=== PATIENT | male | born 1945 | race Caucasian/White ===

== ENCOUNTER → 2019-09-04 | Outpatient (CLI) | payer OTHER ==
[~2019-09-04] MED LIST: CEPHALEXIN500 M1 PO; ZOFRAN4 MG PO
== END | disposition home or self-care (01) ==
LOC: US 13:00
DX: E04.1 Nontoxic single thyroid nodule (principal)

== ENCOUNTER 2019-09-27 17:39 | Emergency (ER) | payer MEDICARE, OTHER ==
[~2019-09-27] VITALS: Ht 165.1 cm; Wt 81.6 kg
[2019-09-27 18:59] LABS: BILIRUBIN NEGATIVE (NEGATIVE); BLOOD 1+ (NEGATIVE); CLARITY CLEAR (CLEAR); COLOR YELLOW (YELLOW); GLUCOSE NEGATIVE (NEGATIVE); KETONE NEGATIVE (NEGATIVE); LEUKO ESTERASE NEGATIVE (NEGATIVE); NITRITE NEGATIVE (NEGATIVE); SPECIFIC GRAVITY 1.025 (1.005-1.030); UROBILINOGEN 0.2 E.U./dl (0.2-1.0)
[2019-09-27 19:00] LABS: BASO % 0.2 % (0.0-1.0); EOS # 0.1 10*3/uL (0.0-0.4); EOS % 3.3 % (1.0-4.0); HEMATOCRIT 35.4 % (42.0-52.0); HEMOGLOBIN 11.7 g/dl (14.0-18.0); LYMPH # 0.2 10*3/uL (1.3-4.4); LYMPH % 5.6 % (27.0-41.0); MEAN CELL VOLUME 90.8 fl (80.0-94.0); MEAN CORPUSCULAR HGB CONC 33.1 g/dl (33.0-37.0); MEAN PLATELET VOLUME 9.8 fl (9.6-12.3); MONO # 0.6 10*3/uL (0.1-1.0); MONO % 14.1 % (3.0-9.0); NEUT # 3.3 10*3/uL (2.3-7.9); NEUT % 76.6 % (47.0-73.0); PLATELET COUNT AUTOMATED 133 10*3/uL (130-400); RED CELL DISTRI WIDTH 15.4 % (0-14.5); WHITE BLOOD COUNT 4.3 10*3/uL (4.8-10.8)
[2019-09-27 19:05] LABS: WBC 0-2 wbc/hpf (0-5)
[2019-09-27 19:14] LABS: ALBUMIN 3.8 gm/dl (3.1-4.5); ALKALINE PHOSPHATASE 77 U/L (45-117); BUN 21 mg/dl (7-24); CHLORIDE 104 mmol/L (98-107); CREATININE 1.32 mg/dL (0.70-1.30); POTASSIUM 4.4 mmol/L (3.5-5.1); SGOT/AST 22 IU/L (3-35); SGPT/ALT 29 U/L (12-78); SODIUM 134 mmol/L (136-145); TOTAL PROTEIN 7.8 gm/dL (6.4-8.2)
[2019-09-28] MEDS ORDERED: CEPHALEXIN500 M1 PO (20:45)
[2019-09-28] MEDS ORDERED: ZOFRAN4 MG PO (20:45)
== END 2019-09-27 21:51 ==
LOC: ED 17:39
PROVIDERS: Emergency Medicine
DX: R19.7 Diarrhea, unspecified (principal); R50.9 Fever, unspecified; R51 Headache; R35.0 Frequency of micturition; R30.9 Painful micturition, unspecified; R30.0 Dysuria; C61 Malignant neoplasm of prostate; Z88.8 Allergy status to other drugs, medicaments and biological substances; Z90.49 Acquired absence of other specified parts of digestive tract

== ENCOUNTER 2019-09-28 18:27 | Emergency (ER) | payer MEDICARE, OTHER ==
[~2019-09-28] VITALS: Ht 165.1 cm; Wt 81.6 kg
--- NOTE | ~2019-09-28 | EKG ---
[place], [place] ELECTROCARDIOGRAM REPORT NAME: DONNY VERDIN UNIT #: [id number] ROOM: DOCTOR: EPIPHANY DRAFT REPORT BIRTHDATE: [birth year] [facility] Test Date: 2019-09-28 Test Time: 18:52:55 Pat Name: DONNY VERDIN Department: Room: Gender: Physical Science Aide: Musa Baird : 1945 Requested By: VALORIE LESTER DNP Order Number: [id number] Reading MD: Jeet Piper MD Measurements Intervals [place] Rate: 98 P: 49 [place]: 171 QRS: -10 QRSD: 91 T: 33 QT: 346 QTc: 442 Interpretive Statements Sinus rhythm Baseline wander in lead(s) II,III,aVR,aVF Electronically Signed On 09-29-2019 10:12:56 PST by Jeet Piper MD CM:EKGRPT:ELECTROCARDIOGRAM REPORT [id number] VALORIE LESTER DNP EPIPHANY DRAFT REPORT VALORIE LESTER DNP
[2019-09-28 19:05] LABS: BASO % 0.2 % (0.0-1.0); EOS # 0.1 10*3/uL (0.0-0.4); EOS % 2.8 % (1.0-4.0); HEMATOCRIT 32.9 % (42.0-52.0); HEMOGLOBIN 10.7 g/dl (14.0-18.0); LYMPH # 0.2 10*3/uL (1.3-4.4); LYMPH % 5.3 % (27.0-41.0); MEAN CELL VOLUME 90.9 fl (80.0-94.0); MEAN CORPUSCULAR HGB 29.6 pg (27.0-31.0); MEAN CORPUSCULAR HGB CONC 32.5 g/dl (33.0-37.0); MONO # 0.6 10*3/uL (0.1-1.0); MONO % 13.1 % (3.0-9.0); NEUT # 3.4 10*3/uL (2.3-7.9); NEUT % 77.9 % (47.0-73.0); PLATELET COUNT AUTOMATED 130 10*3/uL (130-400); RED BLOOD COUNT 3.62 10*6/uL (4.50-5.90); RED CELL DISTRI WIDTH 15.7 % (0-14.5); WHITE BLOOD COUNT 4.4 10*3/uL (4.8-10.8)
[2019-09-28 19:16] LABS: ACT PARTIAL THROMBO TIME 29.1 SECONDS (20.0-32.1); INTERNATIONAL NORM RATIO 1.1 (2.0-3.5)
[2019-09-28 19:20] LABS: ALBUMIN 3.4 gm/dl (3.1-4.5); CREATININE 1.43 mg/dL (0.70-1.30); POTASSIUM 4.2 mmol/L (3.5-5.1); TOTAL PROTEIN 7.6 gm/dL (6.4-8.2); TROPONIN I 0.017 ng/ml (<0.045)
[2019-09-28 20:34] LABS: BILIRUBIN NEGATIVE (NEGATIVE); BLOOD 3+ (NEGATIVE); CLARITY CLEAR (CLEAR); COLOR YELLOW (YELLOW); GLUCOSE NEGATIVE (NEGATIVE); KETONE NEGATIVE (NEGATIVE); LEUKO ESTERASE NEGATIVE (NEGATIVE); NITRITE NEGATIVE (NEGATIVE); SPECIFIC GRAVITY 1.025 (1.005-1.030); UROBILINOGEN 0.2 E.U./dl (0.2-1.0)
[2019-09-28 20:40] LABS: EPITHELIAL CELLS 0-2; RBC 16-20 rbc/hpf (0-2); WBC 0-2 wbc/hpf (0-5)
[2019-09-28 20:41] LABS: BACTERIA 1+; MUCOUS TRACE
[2019-09-28] MEDS ORDERED: ZOFRAN4 MG PO (20:45)
[2019-09-28] MEDS ORDERED: CEPHALEXIN500 M1 PO (20:45)
== END 2019-09-28 21:00 | disposition home or self-care (01) ==
LOC: ED 18:27
PROVIDERS: Nurse Practitioner Family
DX: R11.10 Vomiting, unspecified (principal); R42 Dizziness and giddiness; R50.9 Fever, unspecified; R82.71 Bacteriuria; C61 Malignant neoplasm of prostate; R79.1 Abnormal coagulation profile

== ENCOUNTER → 2023-03-14 | Outpatient (CLI) | payer OTHER | END | disposition home or self-care (01) | LOC: US 01:37 | PROVIDERS: ATTEND Nurse Practitioner Family | DX: R94.5 Abnormal results of liver function studies (principal); Z90.49 Acquired absence of other specified parts of digestive tract ==

== ENCOUNTER → 2023-03-26 | Outpatient (CLI) | payer MEDICARE, OTHER | END | disposition home or self-care (01) | LOC: RAD 14:58 | PROVIDERS: ATTEND Chiropractor | DX: M16.11 Unilateral primary osteoarthritis, right hip (principal); M54.50 Low back pain, unspecified ==

== ENCOUNTER 2025-01-30 19:46 | Inpatient (IN) | payer MEDICARE, OTHER ==
[~2025-01-30] VITALS: Ht 165.1 cm; Wt 75.9 kg
[~2025-01-30 19:46] MED LIST changes: +CETIRIZINE10 MG PO; +DAILY VALUE1 EACH PO; +GLYCOTROL CAPS1 EACH PO; +LEVOTHYROXINE112 MC1 PO; +MAGNESIUM400 MG PO; +TROSPIUM CHLORI20 M1 PO; +VENT7GM INH; +ZINC50 M4 PO; +[UNRECOGNIZED DRUG - CODE] PO
[2025-01-30 20:19] VITALS: BP 125/81
[2025-01-30] MEDS ORDERED: SODIUM CHLORIDE 0.9% 1,000 ML IV ONE (20:45)
[2025-01-30] MEDS ORDERED: Ondansetron Hydrochloride 4 MG/2 ML VIAL IV ONE (20:50)
[2025-01-30] MEDS ORDERED: fentaNYL CITRATE 100 MCG/2 ML VIAL IV ONE (20:50)
[2025-01-30 21:11] LABS: BASO % 0.2 % (0.0-1.0); EOS # 0.1 10*3/uL (0.0-0.4); MEAN CELL VOLUME 92.5 fl (80.0-94.0); MEAN CORPUSCULAR HGB 29.7 pg (27.0-31.0); MEAN CORPUSCULAR HGB CONC 32.1 g/dl (33.0-37.0); MEAN PLATELET VOLUME 10.2 fl (9.6-12.3); MONO % 8.3 % (3.0-9.0); NEUT # 9.6 10*3/uL (2.3-7.9); NEUT % 77.9 % (47.0-73.0); PLATELET COUNT AUTOMATED 245 10*3/uL (130-400); RED BLOOD COUNT 5.08 10*6/uL (4.50-5.90); RED CELL DISTRI WIDTH 14.1 % (0-14.5); WHITE BLOOD COUNT 12.3 10*3/uL (4.8-10.8)
[2025-01-30 21:49] LABS: ALKALINE PHOSPHATASE 100 U/L (46-116); BUN 19 mg/dl (9-23); CHLORIDE 102 mmol/L (98-107); LIPASE 29 U/L (12-53); POTASSIUM 4.4 mmol/L (3.4-5.1); SGPT/ALT 33 U/L (5-49); TOTAL PROTEIN 8.3 gm/dL (6.0-8.0)
[2025-01-31] VITALS (7 sets, daily range): BP systolic 94–142; BP diastolic 53–82
[2025-01-31] MEDS ORDERED: cefTRIAXone Sodium 1 GM/10 ML SYR IV ONE (00:30)
[2025-01-31] MEDS ORDERED: SODIUM CHLORIDE 0.9% 1,000 ML IV SCH (00:30)
[2025-01-31] MEDS ORDERED: AZITHROMYCIN 250 ML IV ONE (00:30)
[2025-01-31] MEDS ORDERED: MORPHINE Sulfate 2 MG/ML SYR IV PRN (04:05)
[2025-01-31] MEDS ORDERED: Magnesium Hydroxide 30 ML UDC PO PRN (04:05)
[2025-01-31] MEDS ORDERED: Ondansetron Hydrochloride 4 MG/2 ML VIAL IV PRN (04:05)
[2025-01-31] MEDS ORDERED: ACETAMINOPHEN 650 MG SUPP R PRN (04:05)
[2025-01-31] MEDS ORDERED: TEMAZEPAM 15 MG CAP PO PRN (04:05)
[2025-01-31] MEDS ORDERED: Acetaminophen/Hydrocodone 5 MG/325 MG TABLET PO PRN (04:05)
[2025-01-31] MEDS ORDERED: ACETAMINOPHEN 325 MG TAB PO PRN (04:05)
[2025-01-31] MEDS ORDERED: BISACODYL 5 MG TAB PO PRN (04:05)
[2025-01-31] MEDS ORDERED: BISACODYL 10 MG SUPP R PRN (04:05)
[2025-01-31] MEDS ORDERED: Pantoprazole Sodium 40 MG VIAL IV SCH (06:00)
[2025-01-31 06:23] LABS: BASO % 0.2 % (0.0-1.0); EOS # 0.1 10*3/uL (0.0-0.4); HEMATOCRIT 45.7 % (42.0-52.0); MEAN CELL VOLUME 94.2 fl (80.0-94.0); MEAN CORPUSCULAR HGB 29.7 pg (27.0-31.0); MEAN CORPUSCULAR HGB CONC 31.5 g/dl (33.0-37.0); MEAN PLATELET VOLUME 10.1 fl (9.6-12.3); MONO # 0.8 10*3/uL (0.1-1.0); MONO % 7.5 % (3.0-9.0); NEUT # 8.4 10*3/uL (2.3-7.9); NEUT % 76.3 % (47.0-73.0); PLATELET COUNT AUTOMATED 212 10*3/uL (130-400); RED BLOOD COUNT 4.85 10*6/uL (4.50-5.90); RED CELL DISTRI WIDTH 14.3 % (0-14.5)
[2025-01-31 06:30] LABS: ACT PARTIAL THROMBO TIME 29.6 SECONDS (20.0-32.1)
[2025-01-31 06:58] LABS: ALKALINE PHOSPHATASE 85 U/L (46-116); BUN 17 mg/dl (9-23); CHLORIDE 104 mmol/L (98-107); CHOLESTEROL 158 mg/dL (<200); LDL CHOLESTEROL 104 mg/dL (9-159); POTASSIUM 4.6 mmol/L (3.4-5.1); SGPT/ALT 24 U/L (5-49); TOTAL PROTEIN 7.4 gm/dL (6.0-8.0); TRIGLYCERIDES 84 mg/dl (<150)
[2025-01-31 07:25] LABS: VITAMIN D, 25-HYDROXY 82.3 ng/mL (30-100)
[2025-01-31] MEDS ORDERED: Enoxaparin Sodium 40 MG/0.4 ML SYR SC SCH (10:00)
[2025-01-31] MEDS ORDERED: Albuterol Sulfate 2.5 MG/3 ML VIAL NEB PRN (10:30)
[2025-01-31] MEDS ORDERED: Levothyroxine Sodium 125 MCG TAB PO SCH (11:05)
[2025-01-31] MEDS ORDERED: Cetirizine Hydrochloride 10 MG TAB PO SCH (11:05)
[2025-01-31] MEDS ORDERED: SODIUM CHLORIDE 0.9% 500 ML IV ONE (16:00)
[2025-01-31] MEDS ORDERED: AZITHROMYCIN 250 ML IV SCH (23:00)
[2025-02-01] VITALS: BP 96/52
[2025-02-01] MEDS ORDERED: cefTRIAXone Sodium 1 GM in SYRINGE INFUSION 10 ML IV SCH
[2025-02-01 07:41] LABS: BASO % 0.4 % (0.0-1.0); EOS # 0.3 10*3/uL (0.0-0.4); EOS % 4.2 % (1.0-4.0); HEMATOCRIT 37.1 % (42.0-52.0); MEAN CELL VOLUME 95.4 fl (80.0-94.0); MEAN CORPUSCULAR HGB 29.8 pg (27.0-31.0); MEAN CORPUSCULAR HGB CONC 31.3 g/dl (33.0-37.0); MEAN PLATELET VOLUME 9.9 fl (9.6-12.3); MONO # 0.6 10*3/uL (0.1-1.0); MONO % 8.2 % (3.0-9.0); NEUT # 4.9 10*3/uL (2.3-7.9); NEUT % 67.9 % (47.0-73.0); PLATELET COUNT AUTOMATED 164 10*3/uL (130-400); RED BLOOD COUNT 3.89 10*6/uL (4.50-5.90); RED CELL DISTRI WIDTH 14.2 % (0-14.5); WHITE BLOOD COUNT 7.2 10*3/uL (4.8-10.8)
[2025-02-01 08:00] VITALS: BP 101/62
[2025-02-01] MEDS ORDERED: OMNICEF300 MG PO (11:28)
[2025-02-01] MEDS ORDERED: ZITHROMAX250 MG PO (11:28)
== END 2025-02-01 13:19 | disposition home or self-care (01) | DRG 871 ==
LOC: ED 19:46 → EDHOLD 01-31 03:27 → 5E 01-31 04:17
PROVIDERS: Nurse Practitioner Family; Student in an Organized Health Care Education/Training Program; ADMIT Internal Medicine; ATTEND Internal Medicine
DX: A41.9 Sepsis, unspecified organism (principal); J18.9 Pneumonia, unspecified organism; K52.9 Noninfective gastroenteritis and colitis, unspecified; R73.9 Hyperglycemia, unspecified; E05.00 Thyrotoxicosis with diffuse goiter without thyrotoxic crisis or storm; E89.0 Postprocedural hypothyroidism; Z20.822 Contact with and (suspected) exposure to COVID-19; Z88.8 Allergy status to other drugs, medicaments and biological substances; Z91.09 Other allergy status, other than to drugs and biological substances; Z85.118 Personal history of other malignant neoplasm of bronchus and lung; Z79.899 Other long term (current) drug therapy; Z79.01 Long term (current) use of anticoagulants; Z79.2 Long term (current) use of antibiotics; Z85.46 Personal history of malignant neoplasm of prostate; Z90.49 Acquired absence of other specified parts of digestive tract; Z87.891 Personal history of nicotine dependence; Z83.79 Family history of other diseases of the digestive system; Z80.8 Family history of malignant neoplasm of other organs or systems

== ENCOUNTER 2025-05-29 16:29 | Emergency (ER) | payer MEDICARE ==
[~2025-05-29] VITALS: Ht 162.5 cm; Wt 74.4 kg
[~2025-05-29 16:29] MED LIST changes: +OMNICEF300 MG PO; +ZITHROMAX250 MG PO
[2025-05-29] MEDS ORDERED: Acetaminophen/Hydrocodone 5 MG/325 MG TABLET PO ONE (16:55)
[2025-05-29 17:42] LABS: BILIRUBIN Negative (Negative); BLOOD Negative (Negative); CLARITY Clear (Clear); COLOR Yellow (Yellow); KETONE Trace (Negative); LEUKO ESTERASE Negative (Negative); NITRITE Negative (Negative); PH 7.0 (4.5-8.0); SPECIFIC GRAVITY 1.025 (1.001-1.030); UROBILINOGEN 1.0 E.U./dl (0.0-1.0)
[2025-05-29 18:08] LABS: BACTERIA TRACE; EPITHELIAL CELLS 0-2; MUCOUS TRACE
[2025-05-29 18:09] LABS: RBC 0-2 rbc/hpf (0-2)
[2025-05-29] MEDS ORDERED: PREDNISONE20 M1 PO (18:21)
[2025-05-29] MEDS ORDERED: Water, Sterile 10 ML VIAL ONE (18:49)
== END 2025-05-29 18:25 | disposition home or self-care (01) ==
LOC: ED 16:29
PROVIDERS: Nurse Practitioner Family
DX: M54.41 Lumbago with sciatica, right side (principal); E03.9 Hypothyroidism, unspecified; Z85.46 Personal history of malignant neoplasm of prostate; Z91.041 Radiographic dye allergy status; Z88.8 Allergy status to other drugs, medicaments and biological substances; Z79.899 Other long term (current) drug therapy; Z85.850 Personal history of malignant neoplasm of thyroid; Z90.49 Acquired absence of other specified parts of digestive tract; Z87.891 Personal history of nicotine dependence

== ENCOUNTER 2025-07-08 21:53 | Emergency (ER) | payer MEDICARE, OTHER ==
[~2025-07-08] VITALS: Ht 175.2 cm; Wt 90.7 kg
[~2025-07-08 21:53] MED LIST changes: +PREDNISONE20 M1 PO
[2025-07-08] MEDS ORDERED: METHOCARBAMOL 500 MG TAB PO ONE (22:50)
[2025-07-08] MEDS ORDERED: NAPROXEN250 MG PO (23:10)
[2025-07-08] MEDS ORDERED: METHOCARBAMOL500 M1 PO (23:10)
== END 2025-07-08 23:27 | disposition home or self-care (01) ==
LOC: ED 21:53
DX: M79.662 Pain in left lower leg (principal); Z87.891 Personal history of nicotine dependence; Z90.49 Acquired absence of other specified parts of digestive tract; Z98.890 Other specified postprocedural states; Z88.8 Allergy status to other drugs, medicaments and biological substances

== ENCOUNTER 2025-10-20 17:10 | Emergency (ER) | payer MEDICARE, OTHER ==
[~2025-10-20] VITALS: Ht 162.5 cm; Wt 79.8 kg
[~2025-10-20 17:10] MED LIST changes: +METHOCARBAMOL500 M1 PO; +NAPROXEN250 MG PO
== END 2025-10-20 19:27 | disposition home or self-care (01) ==
LOC: ED 17:10
DX: M79.672 Pain in left foot (principal); M25.572 Pain in left ankle and joints of left foot; Z91.041 Radiographic dye allergy status; Z88.8 Allergy status to other drugs, medicaments and biological substances; Z79.899 Other long term (current) drug therapy; Z90.49 Acquired absence of other specified parts of digestive tract; Z98.890 Other specified postprocedural states; Z87.891 Personal history of nicotine dependence